=== PATIENT | male | born 1940 | race African-American/Black ===

== ENCOUNTER 2017-01-15 15:14 | Inpatient (IN) | payer OTHER ==
[~2017-01-15] VITALS: Ht 175.3 cm; Wt 73.2 kg
[~2017-01-15 15:14] MED LIST: AMLODIPINE BESY10 MG PO; ASPIR-LOW81 MG PO; ASPIRIN325 MG PO; Aspirin E.C. PO; CARDIZEM CD,CA240 MG PO; CATAPRES0.3 MG PO; CLONIDINE HCL0.2 MG PO; COUMADIN,JANTOVE1 MG PO; CRANBERRY500 MG PO; CRESTOR20 MG PO; Catapres PO; DIOVAN160 MG PO; FEOSOL325 MG PO; Flexeril PO; Flomax PO; GLUCOSAMINE CO1 EAC1 PO; Glucophage PO; K-DUR20 MEQ PO; K-Dur PO; KLOR-CON 1010 ME1 PO; Lortab 7.5/500 PO; METFORMIN HCL1000 MG PO; NORVASC10 MG PO; NU-IRON 150150 MG PO; Norvasc PO; OMEGA 3 500 SO1 EACH PO; OXYCODONE HCL10 MG PO; OxyCODONE PO; OxyCONTIN PO; PANTOPRAZOLE SO40 MG PO; PLAVIX75 MG PO; PROTONIX40 MG PO; Plavix PO; SENOKOT S,PE1 TABLET PO; TAMSULOSIN HCL0.4 MG PO; Tenormin PO; Tylenol Regular Stre PO; VALIUM2 MG PO; VALSARTAN-HCTZ1 EAC1 PO; VITAMIN B CO1 TABLET PO; VITAMIN B-650 MG PO; VITAMIN C1000 MG PO; VITAMIN D31000 UNIT PO; ZANAFLEX4 MG PO; Zestoretic,Prinzide PO
[2017-01-15 16:39] LABS: EOSINOPHIL (%) 1.2 % (0-5); EOSINOPHIL COUNT 0.1 K/uL (0-0.3); HEMATOCRIT 34.4 % (38.0-50.0); IMMATURE GRANULOCYTE (%) 0.2 % (0.0-0.7); INSTRUMENT ABS NEUTROPHIL CT 3.2 K/uL; LYMPHOCYTE COUNT 1.1 K/uL (1.0-2.8); MCH 28.1 PG (29.0-34.0); MCV 87.8 FL (86-99); MEAN PLAT.VOLUME 9.1 uM^3 (9.0-12.4); MONOCYTE (%) 9.6 % (3-12); MONOCYTE COUNT 0.5 K/uL (0-0.8); NEUTROPHIL (%) 66.1 % (45-76); NEUTROPHIL COUNT 3.2 K/uL (1.8-6.4); PLATELET COUNT 246 K/uL (156-360); RBC DIS.WIDTH-CV 15.3 % (11.8-14.6); RBC DIS.WIDTH-SD 48.5 % (39-53); RED BLOOD COUNT 3.92 M/uL (4.00-5.50); WHITE BLOOD COUNT 4.8 K/uL (4.1-10.2)
[2017-01-15 16:54] LABS: CHLORIDE 105 mEq/L (99-109); POTASSIUM 4.2 mEq/L (3.7-5.4); SODIUM 143 mEq/L (136-147)
[2017-01-15 16:56] LABS: GLUCOSE 122 mg/dL (70-99)
[2017-01-15 16:57] LABS: ANION GAP 13 MEQ/L (2-14)
[2017-01-15 16:58] LABS: TOTAL BILIRUBIN 0.3 mg/dL (0.0-1.0)
[2017-01-15 17:00] LABS: ALKALINE PHOSPHATASE 85 IU/L (3-129); GFR ESTIMATE (CALCULATED) > 59 mL/min/
[2017-01-15 17:01] LABS: UREA NITROGEN (BUN) 13 mg/dL (9-23)
[2017-01-15 17:03] LABS: TROP-I INTERPRETATION NEGATIVE; TROPONIN-I < 0.01 ng/mL (0.0-0.30)
[2017-01-15 18:09] LABS: TYPE OF FLUID THORACENTESIS
[2017-01-15 18:24] LABS: BODY FLUID LDH 501 IU/L
[2017-01-15] MEDS ORDERED: ROSUVASTATIN CA20 MG PO (19:16)
[2017-01-15] MEDS ORDERED: ASPIR 8181 M1 PO (19:17)
[2017-01-15] MEDS ORDERED: VALSARTAN160 MG PO (19:17)
[2017-01-15] MEDS ORDERED: FLOMAX0.4 MG PO (19:18)
[2017-01-15] MEDS ORDERED: AMBIEN10 MG PO (19:18)
[2017-01-15] MEDS ORDERED: NORVASC10 MG PO (19:19)
[2017-01-15] MEDS ORDERED: TOPROL XL100 MG PO (19:20)
[2017-01-15] MEDS ORDERED: METFORMIN HCL1000 MG PO (19:20)
[2017-01-15 19:21] LABS: BODY FLUID EOSINOPHILS 1 % (0-25); BODY FLUID RBC'S 220000 /MM^3 (0-100); BODY FLUID WBC'S 1576 /MM^3 (0-500); MONONUCLEAR WBC'S 98 %; POLYNUCLEAR WBC'S 1 % (0-25)
[2017-01-15] MEDS ORDERED: OXYCODONE HCL10 MG PO (19:21)
[2017-01-15] MEDS ORDERED: CYANOCOBAL1000 MCG/2 IM (19:22)
[2017-01-15] MEDS ORDERED: VITAMIN C1000 MG PO (19:22)
[2017-01-15] MEDS ORDERED: ALLEGRA60 MG PO (19:23)
[2017-01-15] MEDS ORDERED: MUCINEX D ER T1 EACH PO (19:23)
[2017-01-15] MEDS ORDERED: VITAMIN D31000 UNIT PO (19:24)
[2017-01-15] MEDS ORDERED: PROTONIX40 MG PO (19:24)
[2017-01-15 19:50] VITALS: BP 140/82
[2017-01-15 23:05] VITALS: BP 144/75
[2017-01-16 03:11] VITALS: BP 132/65
[2017-01-16 07:24] VITALS: BP 130/62
[2017-01-16 12:04] VITALS: BP 109/73
[2017-01-16 15:43] VITALS: BP 105/62
[2017-01-16 19:53] VITALS: BP 109/69
[2017-01-16 21:00] VITALS: BP 122/63
[2017-01-17] VITALS (8 sets, daily range): BP systolic 92–134; BP diastolic 56–78
[2017-01-17 09:46] LABS: INTER. NORMALIZED RATIO 1.2; PROTHROMBIN TIME 12.3 (9.2-11.2); PTT 33.2 (25-32)
[2017-01-17 13:26] LABS: TYPE OF FLUID PLEURAL
[2017-01-17 14:16] LABS: BODY FLUID LDH 411 IU/L; BODY FLUID PROTEIN 5.2 G/DL
[2017-01-17 14:21] LABS: BODY FLUID EOSINOPHILS 0 % (0-25); BODY FLUID RBC'S 200000 /MM^3 (0-100); BODY FLUID WBC'S 1530 /MM^3 (0-500); MONONUCLEAR WBC'S 92 %; POLYNUCLEAR WBC'S 8 % (0-25)
[2017-01-17 15:08] LABS: GLUCOSE 159 mg/dL (70-99); LACTATE DEHYDROGENASE 155 IU/L (20-246)
[2017-01-18 02:50] VITALS: BP 110/65
[2017-01-18 06:43] LABS: MCH 29.4 PG (29.0-34.0); MCHC 33.6 G/DL (30.0-36.0); MCV 87.6 FL (86-99); MEAN PLAT.VOLUME 9.5 uM^3 (9.0-12.4); PLATELET COUNT 246 K/uL (156-360); RBC DIS.WIDTH-CV 15.5 % (11.8-14.6); RBC DIS.WIDTH-SD 49.1 % (39-53); RED BLOOD COUNT 4.11 M/uL (4.00-5.50); WHITE BLOOD COUNT 6.3 K/uL (4.1-10.2)
[2017-01-18 07:18] LABS: ANION GAP 11 MEQ/L (2-14); CHLORIDE 106 MEQ/L (99-109); GFR ESTIMATE (CALCULATED) > 59 mL/min/; GLUCOSE 144 mg/dL (70-99); POTASSIUM 3.5 MEQ/L (3.7-5.4); SAMPLE HEMOLYSIS CHECK 0; SAMPLE ICTERIC CHECK 0; SAMPLE LIPEMIA CHECK 0; SODIUM 142 MEQ/L (136-147); UREA NITROGEN (BUN) 14 mg/dL (9-23)
[2017-01-18 07:24] VITALS: BP 131/75
[2017-01-18 11:08] VITALS: BP 109/59
[2017-01-18 16:08] VITALS: BP 136/76
[2017-01-18 19:20] VITALS: BP 140/78
[2017-01-18 23:16] VITALS: BP 120/73
[2017-01-19 07:05] VITALS: BP 132/72
[2017-01-19 14:59] VITALS: BP 126/73
[2017-01-19 21:00] VITALS: BP 127/68
[2017-01-19 23:22] VITALS: BP 130/77
[2017-01-20 07:01] VITALS: BP 123/91
[2017-01-20 14:50] VITALS: BP 141/71
[2017-01-20 17:24] LABS: POINT-OF-CARE METER ID UU13113655; POINT-OF-CARE USER ID ENVKLS06
[2017-01-20 20:16] LABS: POINT-OF-CARE METER ID UU13113675; POINT-OF-CARE USER ID ADMSLT55
[2017-01-20 21:46] VITALS: BP 124/77
[2017-01-21 00:58] VITALS: BP 113/68
[2017-01-21 04:27] VITALS: BP 117/58
[2017-01-21 06:24] LABS: HEMATOCRIT 36.9 % (38.0-50.0); MCH 29.3 PG (29.0-34.0); MCHC 33.3 G/DL (30.0-36.0); MCV 87.9 FL (86-99); MEAN PLAT.VOLUME 9.4 uM^3 (9.0-12.4); PLATELET COUNT 264 K/uL (156-360); RBC DIS.WIDTH-CV 15.5 % (11.8-14.6)
[2017-01-21 07:06] LABS: ANION GAP 10 MEQ/L (2-14); CHLORIDE 103 MEQ/L (99-109); GFR ESTIMATE (CALCULATED) > 59 mL/min/; GLUCOSE 255 mg/dL (70-99); POTASSIUM 4.9 MEQ/L (3.7-5.4); SAMPLE HEMOLYSIS CHECK 2; SAMPLE ICTERIC CHECK 0; SAMPLE LIPEMIA CHECK 0; SODIUM 138 MEQ/L (136-147); UREA NITROGEN (BUN) 17 mg/dL (9-23)
[2017-01-21 08:17] VITALS: BP 112/64
[2017-01-21 09:06] LABS: POTASSIUM 5.2 MEQ/L (3.7-5.4)
[2017-01-21 16:17] VITALS: BP 108/73
[2017-01-21 19:51] VITALS: BP 107/74
[2017-01-22] VITALS (7 sets, daily range): BP systolic 121–157; BP diastolic 56–81
[2017-01-22 16:46] LABS: POINT-OF-CARE METER ID UU14208753
[2017-01-23 04:30] VITALS: BP 166/80
[2017-01-23 08:26] VITALS: BP 136/74
[2017-01-23 11:04] VITALS: BP 137/78
[2017-01-23 16:16] VITALS: BP 130/81
[2017-01-23 19:35] VITALS: BP 134/72
[2017-01-24] VITALS (7 sets, daily range): BP systolic 109–162; BP diastolic 61–88
[2017-01-25 03:40] VITALS: BP 155/76
[2017-01-25 08:00] VITALS: BP 135/74
[2017-01-25 11:32] VITALS: BP 138/70
[2017-01-25 15:21] VITALS: BP 121/68
[2017-01-25] MEDS ORDERED: FUROSEMIDE40 MG PO (19:34)
[2017-01-25] MEDS ORDERED: DILTIAZEM 24HR120 MG PO (19:34)
== END 2017-01-25 21:20 | disposition home or self-care (01) | DRG 163 ==
LOC: EME 15:14 → 5EAST 18:20 → EDOF 18:20 → 5EAST 19:25 → 3EAST 01-20 20:54
PROVIDERS: Emergency Medicine; Internal Medicine; Internal Medicine Pulmonary Disease; Thoracic Surgery (Cardiothoracic Vascular Surgery)
DX: J90 Pleural effusion, not elsewhere classified (principal); J95.811 Postprocedural pneumothorax; J94.2 Hemothorax; J94.1 Fibrothorax; I31.3 Pericardial effusion (noninflammatory); J98.19 Other pulmonary collapse; J18.9 Pneumonia, unspecified organism; J20.9 Acute bronchitis, unspecified; I13.0 Hypertensive heart and chronic kidney disease with heart failure and stage 1 through stage 4 chronic kidney disease, or unspecified chronic kidney disease; I50.32 Chronic diastolic (congestive) heart failure; E11.22 Type 2 diabetes mellitus with diabetic chronic kidney disease; N18.9 Chronic kidney disease, unspecified; I47.1 Supraventricular tachycardia; I25.10 Atherosclerotic heart disease of native coronary artery without angina pectoris; D64.9 Anemia, unspecified; E53.8 Deficiency of other specified B group vitamins; K21.9 Gastro-esophageal reflux disease without esophagitis; M19.90 Unspecified osteoarthritis, unspecified site; N40.0 Benign prostatic hyperplasia without lower urinary tract symptoms; E78.5 Hyperlipidemia, unspecified; F41.9 Anxiety disorder, unspecified; R63.4 Abnormal weight loss; M51.9 Unspecified thoracic, thoracolumbar and lumbosacral intervertebral disc disorder; Z87.891 Personal history of nicotine dependence; Z95.1 Presence of aortocoronary bypass graft; Z95.2 Presence of prosthetic heart valve; Z95.5 Presence of coronary angioplasty implant and graft; Z96.641 Presence of right artificial hip joint
CPT/HCPCS: 71010; 71020; 71250; 71260; 76942; 80048; 80053; 82945; 82947; 82948; 83615; 83615 91; 83880; 84155; 84157; 84484; 84999; 85025; 85027; 85610; 85730; 87070; 87075; 87116; 87205; 87206; 87449; 88108; 88304; 88305; 89051; 93005; 97530 GP; 99281; 99285; J0690; J0696; J1100; J1170; J1644; J2405; J2710; J3010; J7050; J7120

== ENCOUNTER → 2017-02-12 | Outpatient (CLI) | payer OTHER ==
[~2017-02-12] MED LIST changes: +ALLEGRA60 MG PO; +AMBIEN10 MG PO; +ASPIR 8181 M1 PO; +CYANOCOBAL1000 MCG/2 IM; +DILTIAZEM 24HR120 MG PO; +FLOMAX0.4 MG PO; +FUROSEMIDE40 MG PO; +MUCINEX D ER T1 EACH PO; +ROSUVASTATIN CA20 MG PO; +TOPROL XL100 MG PO; +VALSARTAN160 MG PO
[2017-02-12 08:09] LABS: BASE EXCESS 5.8 mEq/L (-3 to +3); BICARBONATE 28.4 mEq/L (22-26); CARBOXY HGB 1.9 % (0-5); PCO2 34 mm Hg (35-45); PO2 94 mm Hg (80-100); pH 7.53 (7.35-7.45)
[2017-02-12 08:10] LABS: FI02 21 %; SITE R RAD
== END | disposition home or self-care (01) ==
LOC: RES 07:42
PROVIDERS: Thoracic Surgery (Cardiothoracic Vascular Surgery)
DX: J98.4 Other disorders of lung (principal); R94.2 Abnormal results of pulmonary function studies
CPT/HCPCS: 36600; 82803; 94060; 94726; 94729

== ENCOUNTER 2017-02-17 21:38 | Inpatient (IN) | payer OTHER ==
[~2017-02-17] VITALS: Ht 175.3 cm; Wt 74.2 kg
[2017-02-18 07:14] VITALS: BP 168/82
[2017-02-18 07:24] LABS: EOSINOPHIL (%) 1.6 % (0-5); EOSINOPHIL COUNT 0.1 K/uL (0-0.3); HEMATOCRIT 39.1 % (38.0-50.0); IMMATURE GRANULOCYTE (%) 0.4 % (0.0-0.7); INSTRUMENT ABS NEUTROPHIL CT 3.4 K/uL; LYMPHOCYTE COUNT 1.4 K/uL (1.0-2.8); MCH 28.1 PG (29.0-34.0); MCHC 31.7 G/DL (30.0-36.0); MCV 88.5 FL (86-99); MEAN PLAT.VOLUME 9.3 uM^3 (9.0-12.4); MONOCYTE (%) 9.3 % (3-12); MONOCYTE COUNT 0.5 K/uL (0-0.8); NEUTROPHIL COUNT 3.4 K/uL (1.8-6.4); PLATELET COUNT 230 K/uL (156-360); RBC DIS.WIDTH-CV 16.5 % (11.8-14.6); RBC DIS.WIDTH-SD 53.9 % (39-53); RED BLOOD COUNT 4.42 M/uL (4.00-5.50); WHITE BLOOD COUNT 5.5 K/uL (4.1-10.2)
[2017-02-18 07:35] LABS: POINT-OF-CARE METER ID UU13113694
[2017-02-18 07:45] LABS: ANION GAP 7 MEQ/L (2-14); CHLORIDE 103 MEQ/L (99-109); POTASSIUM 3.6 MEQ/L (3.7-5.4); SAMPLE HEMOLYSIS CHECK 0; SAMPLE ICTERIC CHECK 0; SAMPLE LIPEMIA CHECK 0; SODIUM 143 MEQ/L (136-147); TOTAL BILIRUBIN 0.5 MG/DL (0.0-1.0)
[2017-02-18 07:51] LABS: ALKALINE PHOSPHATASE 85 IU/L (3-129); GFR ESTIMATE (CALCULATED) > 59 mL/min/; GLUCOSE 133 mg/dL (70-99); UREA NITROGEN (BUN) 18 mg/dL (9-23)
[2017-02-18 16:00] VITALS: BP 123/81
[2017-02-18 17:00] VITALS: BP 125/77
[2017-02-18 17:18] LABS: METH RESISTANT S AUREUS PCR NEGATIVE (NEGATIVE)
[2017-02-18 18:03] LABS: PROBE CHECK PASS; SPECIMEN PROCESSING CONTROL PASS
[2017-02-18 20:00] VITALS: BP 124/76
[2017-02-19] VITALS (7 sets, daily range): BP systolic 96–129; BP diastolic 55–78
[2017-02-19 01:34] LABS: POINT-OF-CARE METER ID UU13113731
[2017-02-19 07:20] LABS: MCH 29.5 PG (29.0-34.0); MCHC 32.9 G/DL (30.0-36.0); MCV 89.6 FL (86-99); MEAN PLAT.VOLUME 9.9 uM^3 (9.0-12.4); PLATELET COUNT 223 K/uL (156-360); RBC DIS.WIDTH-SD 55.4 % (39-53); WHITE BLOOD COUNT 10.9 K/uL (4.1-10.2)
[2017-02-19 07:22] LABS: RED BLOOD COUNT 3.46 M/uL (4.00-5.50)
[2017-02-19 07:32] LABS: ANION GAP 11 MEQ/L (2-14); CHLORIDE 103 MEQ/L (99-109); GFR ESTIMATE (CALCULATED) > 59 mL/min/; GLUCOSE 197 mg/dL (70-99); POTASSIUM 4.1 MEQ/L (3.7-5.4); SAMPLE HEMOLYSIS CHECK 0; SAMPLE ICTERIC CHECK 0; SAMPLE LIPEMIA CHECK 0; SODIUM 140 MEQ/L (136-147); UREA NITROGEN (BUN) 27 mg/dL (9-23)
[2017-02-19 08:28] LABS: POINT-OF-CARE METER ID UU13113731; POINT-OF-CARE USER ID 612031313
[2017-02-19 12:49] LABS: POINT-OF-CARE METER ID UU13113731; POINT-OF-CARE USER ID 612031313
[2017-02-19 16:12] LABS: POINT-OF-CARE METER ID UU14174217
[2017-02-19 21:10] LABS: POINT-OF-CARE METER ID UU14208751
[2017-02-20] VITALS: BP 115/68
[2017-02-20 04:00] VITALS: BP 123/76
[2017-02-20 06:30] LABS: POINT-OF-CARE METER ID UU14162636
[2017-02-20 08:00] VITALS: BP 130/77
[2017-02-20 12:36] LABS: POINT-OF-CARE METER ID UU14174217
[2017-02-20 15:00] VITALS: BP 128/68
[2017-02-20 16:00] VITALS: BP 143/68
[2017-02-20 16:08] LABS: POINT-OF-CARE METER ID UU14174217
[2017-02-20 20:00] VITALS: BP 128/75
[2017-02-20 22:51] LABS: POINT-OF-CARE METER ID UU14162636
[2017-02-21] VITALS: BP 145/62
[2017-02-21 04:00] VITALS: BP 134/67
[2017-02-21 08:05] VITALS: BP 138/97
[2017-02-21 08:31] LABS: POINT-OF-CARE METER ID UU14162636
[2017-02-21 12:00] VITALS: BP 112/59
[2017-02-21 12:33] LABS: POINT-OF-CARE METER ID UU14162636
[2017-02-21 16:00] VITALS: BP 120/67
[2017-02-21 16:04] LABS: POINT-OF-CARE METER ID UU14162636
[2017-02-21 20:00] VITALS: BP 129/74
[2017-02-21 21:38] LABS: POINT-OF-CARE METER ID UU14174217
[2017-02-22] VITALS (7 sets, daily range): BP systolic 116–153; BP diastolic 61–90
[2017-02-22 08:49] LABS: POINT-OF-CARE METER ID UU13113748
[2017-02-22 12:56] LABS: POINT-OF-CARE METER ID UU14208751
[2017-02-22 17:22] LABS: POINT-OF-CARE METER ID UU14208751
[2017-02-22 21:25] LABS: POINT-OF-CARE METER ID UU14208751
[2017-02-23] VITALS: BP 137/66
[2017-02-23 06:47] LABS: HEMATOCRIT 23.6 % (38.0-50.0); MCH 29.4 PG (29.0-34.0); MCHC 33.1 G/DL (30.0-36.0); MCV 89.1 FL (86-99); MEAN PLAT.VOLUME 9.8 uM^3 (9.0-12.4); PLATELET COUNT 181 K/uL (156-360); RBC DIS.WIDTH-SD 54.5 % (39-53); WHITE BLOOD COUNT 5.7 K/uL (4.1-10.2)
[2017-02-23 07:01] LABS: RED BLOOD COUNT 2.65 M/uL (4.00-5.50)
[2017-02-23 07:05] LABS: ANION GAP 6 MEQ/L (2-14); CHLORIDE 103 MEQ/L (99-109); GFR ESTIMATE (CALCULATED) > 59 mL/min/; GLUCOSE 136 mg/dL (70-99); POTASSIUM 3.4 MEQ/L (3.7-5.4); SAMPLE HEMOLYSIS CHECK 0; SAMPLE ICTERIC CHECK 0; SAMPLE LIPEMIA CHECK 0; SODIUM 142 MEQ/L (136-147); UREA NITROGEN (BUN) 16 mg/dL (9-23)
[2017-02-23 08:00] VITALS: BP 152/70
[2017-02-23 09:02] LABS: POINT-OF-CARE METER ID UU14208751
[2017-02-23 12:00] VITALS: BP 113/63
[2017-02-23 12:32] LABS: POINT-OF-CARE METER ID UU14208751
[2017-02-23 16:00] VITALS: BP 123/67
[2017-02-23 17:14] LABS: POINT-OF-CARE METER ID UU14208751
[2017-02-23 18:00] VITALS: BP 135/65
[2017-02-23 20:00] VITALS: BP 142/74
[2017-02-23 22:55] LABS: POINT-OF-CARE METER ID UU14208751
[2017-02-24] VITALS (7 sets, daily range): BP systolic 110–162; BP diastolic 60–80
[2017-02-24 04:46] LABS: MCH 29.2 PG (29.0-34.0); MCHC 32.7 G/DL (30.0-36.0); MCV 89.3 FL (86-99); MEAN PLAT.VOLUME 9.6 uM^3 (9.0-12.4); PLATELET COUNT 195 K/uL (156-360); RBC DIS.WIDTH-CV 17.1 % (11.8-14.6); RBC DIS.WIDTH-SD 55.5 % (39-53); RED BLOOD COUNT 2.91 M/uL (4.00-5.50); WHITE BLOOD COUNT 7.3 K/uL (4.1-10.2)
[2017-02-24 08:15] LABS: POINT-OF-CARE METER ID UU13113748; POINT-OF-CARE USER ID AGYTJR
[2017-02-24 16:32] LABS: POINT-OF-CARE METER ID UU13113803
[2017-02-24 21:12] LABS: POINT-OF-CARE METER ID UU13113803
[2017-02-25 04:33] VITALS: BP 151/66
[2017-02-25 07:45] LABS: POINT-OF-CARE METER ID UU13113781
[2017-02-25 08:15] VITALS: BP 125/60
[2017-02-25 11:42] LABS: POINT-OF-CARE METER ID UU13113781
[2017-02-25 12:00] VITALS: BP 125/58
[2017-02-25 16:20] VITALS: BP 115/56
[2017-02-25 16:34] LABS: POINT-OF-CARE METER ID UU13113803
[2017-02-25 20:15] VITALS: BP 113/58
[2017-02-26] VITALS (7 sets, daily range): BP systolic 129–169; BP diastolic 60–77
[2017-02-26 07:27] LABS: POINT-OF-CARE METER ID UU13113803
[2017-02-26 07:33] LABS: HEMATOCRIT 24.2 % (38.0-50.0); MCH 28.5 PG (29.0-34.0); MCHC 31.4 G/DL (30.0-36.0); MCV 90.6 FL (86-99); MEAN PLAT.VOLUME 10.3 uM^3 (9.0-12.4); PLATELET COUNT 234 K/uL (156-360); RBC DIS.WIDTH-CV 17.5 % (11.8-14.6); RBC DIS.WIDTH-SD 57.9 % (39-53); RED BLOOD COUNT 2.67 M/uL (4.00-5.50); WHITE BLOOD COUNT 5.5 K/uL (4.1-10.2)
[2017-02-26 07:52] LABS: ANION GAP 6 MEQ/L (2-14); CHLORIDE 103 MEQ/L (99-109); POTASSIUM 3.7 MEQ/L (3.7-5.4); SAMPLE HEMOLYSIS CHECK 0; SAMPLE ICTERIC CHECK 0; SAMPLE LIPEMIA CHECK 0; SODIUM 141 MEQ/L (136-147); TOTAL BILIRUBIN 0.4 MG/DL (0.0-1.0)
[2017-02-26 08:00] LABS: ALKALINE PHOSPHATASE 60 IU/L (3-129); GFR ESTIMATE (CALCULATED) > 59 mL/min/; GLUCOSE 124 mg/dL (70-99); UREA NITROGEN (BUN) 10 mg/dL (9-23)
[2017-02-26 11:46] LABS: POINT-OF-CARE METER ID UU13113698
[2017-02-26 16:25] LABS: POINT-OF-CARE METER ID UU13113698
[2017-02-26 21:28] LABS: POINT-OF-CARE USER ID ENVMNS
[2017-02-27 03:42] VITALS: BP 134/64
[2017-02-27 05:53] LABS: EOSINOPHIL (%) 3.2 % (0-5); EOSINOPHIL COUNT 0.2 K/uL (0-0.3); HEMATOCRIT 24.3 % (38.0-50.0); IMMATURE GRANULOCYTE (%) 0.4 % (0.0-0.7); INSTRUMENT ABS NEUTROPHIL CT 3.4 K/uL; MCH 28.3 PG (29.0-34.0); MCHC 31.3 G/DL (30.0-36.0); MCV 90.3 FL (86-99); MEAN PLAT.VOLUME 9.9 uM^3 (9.0-12.4); MONOCYTE (%) 10.9 % (3-12); MONOCYTE COUNT 0.6 K/uL (0-0.8); NEUTROPHIL (%) 65.5 % (45-76); NEUTROPHIL COUNT 3.4 K/uL (1.8-6.4); PLATELET COUNT 255 K/uL (156-360); RBC DIS.WIDTH-CV 17.2 % (11.8-14.6); RED BLOOD COUNT 2.69 M/uL (4.00-5.50); WHITE BLOOD COUNT 5.3 K/uL (4.1-10.2)
[2017-02-27 06:24] LABS: ANION GAP 5 MEQ/L (2-14); CHLORIDE 106 MEQ/L (99-109); GFR ESTIMATE (CALCULATED) > 59 mL/min/; GLUCOSE 131 mg/dL (70-99); SAMPLE HEMOLYSIS CHECK 0; SAMPLE ICTERIC CHECK 0; SAMPLE LIPEMIA CHECK 0; SODIUM 143 MEQ/L (136-147); UREA NITROGEN (BUN) 14 mg/dL (9-23)
[2017-02-27 07:37] LABS: POINT-OF-CARE METER ID UU13113698
[2017-02-27 07:50] VITALS: BP 145/65
[2017-02-27 11:31] LABS: POINT-OF-CARE METER ID UU13113698
[2017-02-27 11:45] VITALS: BP 162/73
[2017-02-27 15:43] VITALS: BP 128/61
[2017-02-27 16:29] LABS: POINT-OF-CARE METER ID UU13113698
[2017-02-27 20:26] VITALS: BP 128/61
[2017-02-28 00:06] VITALS: BP 158/77
[2017-02-28 05:31] LABS: EOSINOPHIL (%) 3.6 % (0-5); EOSINOPHIL COUNT 0.2 K/uL (0-0.3); HEMATOCRIT 24.6 % (38.0-50.0); IMMATURE GRANULOCYTE (%) 0.2 % (0.0-0.7); INSTRUMENT ABS NEUTROPHIL CT 3.5 K/uL; MCH 28.8 PG (29.0-34.0); MCHC 31.7 G/DL (30.0-36.0); MCV 90.8 FL (86-99); MONOCYTE (%) 9.2 % (3-12); MONOCYTE COUNT 0.5 K/uL (0-0.8); NEUTROPHIL (%) 67.1 % (45-76); NEUTROPHIL COUNT 3.5 K/uL (1.8-6.4); PLATELET COUNT 269 K/uL (156-360); RBC DIS.WIDTH-CV 17.3 % (11.8-14.6); RBC DIS.WIDTH-SD 56.9 % (39-53); RED BLOOD COUNT 2.71 M/uL (4.00-5.50); WHITE BLOOD COUNT 5.2 K/uL (4.1-10.2)
[2017-02-28 05:48] VITALS: BP 146/67
[2017-02-28 07:24] VITALS: BP 168/79
[2017-02-28 07:39] LABS: POINT-OF-CARE METER ID UU13113698
[2017-02-28 11:14] LABS: POINT-OF-CARE METER ID UU13113781
[2017-02-28 13:14] VITALS: BP 118/55
[2017-02-28 16:22] LABS: POINT-OF-CARE METER ID UU13113781
[2017-02-28 19:48] VITALS: BP 127/61
[2017-03-01 00:26] VITALS: BP 140/68
[2017-03-01 00:57] VITALS: BP 117/69
[2017-03-01 04:47] VITALS: BP 157/89
[2017-03-01 05:42] LABS: HEMATOCRIT 25.1 % (38.0-50.0); MCH 29.8 PG (29.0-34.0); MCHC 32.7 G/DL (30.0-36.0); MCV 91.3 FL (86-99); PLATELET COUNT 289 K/uL (156-360); RBC DIS.WIDTH-CV 17.4 % (11.8-14.6); RED BLOOD COUNT 2.75 M/uL (4.00-5.50); WHITE BLOOD COUNT 5.7 K/uL (4.1-10.2)
[2017-03-01 07:24] VITALS: BP 184/85
[2017-03-01 07:59] LABS: POINT-OF-CARE USER ID NUTSLF44
[2017-03-01 11:12] LABS: POINT-OF-CARE USER ID NUTSLF44
[2017-03-01 12:00] VITALS: BP 136/64
[2017-03-01] MEDS ORDERED: FERROUS SULFAT325 MG PO (16:58)
[2017-03-01] MEDS ORDERED: DOCUSATE SODIU100 MG PO (16:58)
[2017-03-01] MEDS ORDERED: ASCORBIC ACID500 M3 PO (16:58)
[2017-03-01] MEDS ORDERED: FOLIC ACID1 MG PO (16:58)
[2017-03-01] MEDS ORDERED: NORCO 5/3251 TABLET PO (16:58)
[2017-03-01 17:18] LABS: POINT-OF-CARE METER ID UU13113781; POINT-OF-CARE USER ID NUTSLF44
== END 2017-03-01 21:54 | disposition home health service (06) | DRG 164 ==
LOC: ENRESERV 21:38 → 2SOUTH 02-18 06:29 → ENRESERV 02-18 10:01 → EDSTATUS 02-18 10:07 → SDC 02-18 10:07 → 2SOUTH 02-18 10:08 → ENRESERV 02-18 14:20 → 2SOUTH 02-18 15:12 → 4WEST 02-18 15:44 → ENRESERV 02-24 07:57 → 4EAST 02-24 09:27
PROVIDERS: Internal Medicine; Surgery; Thoracic Surgery (Cardiothoracic Vascular Surgery)
PROC: 0BBN0ZZ Excision of Right Pleura, Open Approach (ICD-10-PCS; principal; 2017-02-18)
PROC: 0BDN0ZZ Extraction of Right Pleura, Open Approach (ICD-10-PCS; principal; 2017-02-18)
DX: J94.1 Fibrothorax (principal); J98.19 Other pulmonary collapse; J90 Pleural effusion, not elsewhere classified; J93.9 Pneumothorax, unspecified; J93.82 Other air leak; E87.6 Hypokalemia; E11.9 Type 2 diabetes mellitus without complications; I11.9 Hypertensive heart disease without heart failure; I25.10 Atherosclerotic heart disease of native coronary artery without angina pectoris; E78.2 Mixed hyperlipidemia; K21.9 Gastro-esophageal reflux disease without esophagitis; D64.9 Anemia, unspecified; E53.8 Deficiency of other specified B group vitamins; E55.9 Vitamin D deficiency, unspecified; N40.0 Benign prostatic hyperplasia without lower urinary tract symptoms; Z96.641 Presence of right artificial hip joint; Z80.0 Family history of malignant neoplasm of digestive organs; Z82.49 Family history of ischemic heart disease and other diseases of the circulatory system; Z83.3 Family history of diabetes mellitus; Z95.1 Presence of aortocoronary bypass graft; Z95.2 Presence of prosthetic heart valve; Z95.5 Presence of coronary angioplasty implant and graft; Z87.891 Personal history of nicotine dependence; Z79.82 Long term (current) use of aspirin
CPT/HCPCS: 71010; 71020; 80048; 80053; 82948; 85025; 85027; 86900; 86901; 87070; 87075; 87205; 87641; 88300; 88305; 93005; 94010; 94640; 94640 76; 94667; 94668; 97530 GO; 97530 GP; 99202; J0131; J0690; J1100; J1200; J1644; J1815; J1885; J2250; J2405; J2710; J3010; J3420; J7050; J7120; P9045; S0020